=== PATIENT | male | born 1960 | race Caucasian/White ===

== ENCOUNTER 2018-02-21 20:42 | Emergency (ER) | payer OTHER ==
[2018-02-21 22:44] LABS: ADD MAN DIFF? NO
[2018-02-21 22:45] LABS: WHITE BLOOD COUNT 6.7 10^3/ul (4.8-10.8)
[2018-02-21 22:45] LABS: BASOPHIL # 0.1 10^3/ul (0.0-0.1); BASOPHILS % 0.9 % (0.0-2.0); EOSINOPHILS # 0.3 10^3/ul (0.0-0.5); HEMATOCRIT 45.1 % (42.0-52.0); HEMOGLOBIN 15.2 g/dl (14.0-18.0); LYMPHOCYTES # 2.6 10^3/ul (0.8-2.9); LYMPHOCYTES % 38.9 % (15.0-51.0); MEAN CORPUSCULAR HEMOGLOBIN 31.3 pg (29.0-33.0); MEAN CORPUSCULAR HGB CONC 33.7 g/dl (32.0-37.0); MEAN CORPUSCULAR VOLUME 92.8 fl (82.0-101.0); MEAN PLATELET VOLUME 9.5 fl (7.4-10.4); MONOCYTE # 0.5 10^3/ul (0.3-0.9); MONOCYTES % 7.9 % (0.0-11.0); NEUTROPHIL # 3.2 10^3/ul (1.6-7.5); NEUTROPHILS % 46.9 % (39.0-77.0); PLATELET COUNT 158 10^3/UL (140-415); RED BLOOD COUNT 4.86 10^6/ul (4.70-6.10); RED CELL DISTRIBUTION WIDTH 12.4 % (11.5-14.5)
[2018-02-21] MEDS: HYDROmorphONE 0.5 MG/0.5 ML SYG IV (22:56)
[2018-02-21] MEDS: ONDANSETRON 4 MG INJ IV (22:56)
[2018-02-21 23:05] LABS: INR 1.01; PROTIME 13.4 Sec (11.9-14.9)
[2018-02-21 23:09] LABS: ALANINE AMINOTRANSFERASE 112 IU/L (13-69); ALBUMIN 3.7 g/dl (3.3-4.9); ALBUMIN/GLOBULIN RATIO 1.27; ALKALINE PHOSPHATASE 59 IU/L (42-121); ANION GAP 12 (8-16); ASPARTATE AMINO TRANSFERASE 59 IU/L (15-46); BLOOD UREA NITROGEN 16 mg/dl (7-20); CALCIUM 9.2 mg/dl (8.4-10.2); CARBON DIOXIDE 24 mmol/L (21-31); CHLORIDE 108 mmol/L (97-110); CREATININE 1.26 mg/dl (0.61-1.24); GLUCOSE 191 mg/dl (70-220); LIPASE 186 U/L (23-300); POTASSIUM 5.3 mmol/L (3.5-5.1); SODIUM 139 mmol/L (135-144); TOTAL PROTEIN 6.6 g/dl (6.1-8.1)
[2018-02-22 01:01] LABS: ADD UMIC YES; UR ASCORBIC ACID NEGATIVE (NEGATIVE); UR BILIRUBIN (Dip) NEGATIVE (NEGATIVE); UR BLOOD (Dip) NEGATIVE (NEGATIVE); UR CLARITY CLEAR (CLEAR); UR COLOR STRAW (YELLOW); UR GLUCOSE (Dip) NEGATIVE (NEGATIVE); UR KETONES (Dip) NEGATIVE (NEGATIVE); UR LEUKOCYTE ESTERASE (Dip) NEGATIVE Leu/ul (NEGATIVE); UR NITRITE (Dip) NEGATIVE (NEGATIVE); UR RBC 0 /HPF (0-5); UR SPECIFIC GRAVITY (Dip) 1.008 (1.003-1.030); UR TOTAL PROTEIN (Dip) 2+ mg/dl (NEGATIVE); UR UROBILINOGEN (Dip) NEGATIVE (NEGATIVE); UR WBC 1 /HPF (0-5)
[2018-02-22] MEDS: morphine 10 MG INJ IV (01:10)
== END 2018-02-22 01:51 | disposition home or self-care (01) ==
LOC: E/R 02-22 01:51
DX: R10.84 Generalized abdominal pain (principal); R14.0 Abdominal distension (gaseous); R11.0 Nausea; B18.2 Chronic viral hepatitis C; I12.9 Hypertensive chronic kidney disease with stage 1 through stage 4 chronic kidney disease, or unspecified chronic kidney disease; N18.9 Chronic kidney disease, unspecified; E87.5 Hyperkalemia; R74.0 Nonspecific elevation of levels of transaminase and lactic acid dehydrogenase [LDH]; K74.60 Unspecified cirrhosis of liver; E11.22 Type 2 diabetes mellitus with diabetic chronic kidney disease; Z79.84 Long term (current) use of oral hypoglycemic drugs
CPT/HCPCS: 36415; 74176; 80053; 81001; 83690; 85025; 85610; 96374; 96375; 99285-25

== ENCOUNTER 2018-04-12 21:43 | Emergency (ER) | payer OTHER ==
[2018-04-12] MEDS: morphine 4 MG/ML VIAL IV (22:30)
[2018-04-12] MEDS: ONDANSETRON 4 MG INJ IV (22:30)
[2018-04-12 22:37] LABS: ADD MAN DIFF? NO
[2018-04-12] MEDS: HYDROmorphONE 0.5 MG/0.5 ML SYG IV (23:00)
[2018-04-12 23:42] LABS: WHITE BLOOD COUNT 7.9 10^3/ul (4.8-10.8)
[2018-04-12 23:42] LABS: BASOPHILS % 0.5 % (0.0-2.0); EOSINOPHILS # 0.2 10^3/ul (0.0-0.5); EOSINOPHILS % 2.9 % (0.0-7.0); HEMATOCRIT 44.6 % (42.0-52.0); HEMOGLOBIN 15.2 g/dl (14.0-18.0); LYMPHOCYTES # 3.6 10^3/ul (0.8-2.9); LYMPHOCYTES % 45.2 % (15.0-51.0); MEAN CORPUSCULAR HEMOGLOBIN 30.6 pg (29.0-33.0); MEAN CORPUSCULAR HGB CONC 34.1 g/dl (32.0-37.0); MEAN CORPUSCULAR VOLUME 89.9 fl (82.0-101.0); MEAN PLATELET VOLUME 10.1 fl (7.4-10.4); MONOCYTE # 0.5 10^3/ul (0.3-0.9); NEUTROPHIL # 3.5 10^3/ul (1.6-7.5); NEUTROPHILS % 45.1 % (39.0-77.0); PLATELET COUNT 157 10^3/UL (140-415); RED BLOOD COUNT 4.96 10^6/ul (4.70-6.10); RED CELL DISTRIBUTION WIDTH 12.7 % (11.5-14.5)
[2018-04-12 23:55] LABS: LACTIC ACID 0.8 mmol/L (0.5-2.0)
[2018-04-13 00:02] LABS: ALANINE AMINOTRANSFERASE 167 IU/L (13-69); ALBUMIN 3.6 g/dl (3.3-4.9); ALBUMIN/GLOBULIN RATIO 1.09; ALKALINE PHOSPHATASE 77 IU/L (42-121); ANION GAP 13 (8-16); ASPARTATE AMINO TRANSFERASE 75 IU/L (15-46); BILIRUBIN,INDIRECT 0.2 mg/dl (0-1.1); BILIRUBIN,TOTAL 0.2 mg/dl (0.2-1.3); BLOOD UREA NITROGEN 21 mg/dl (7-20); CALCIUM 8.9 mg/dl (8.4-10.2); CARBON DIOXIDE 21 mmol/L (21-31); CHLORIDE 103 mmol/L (97-110); CREATININE 1.06 mg/dl (0.61-1.24); GLUCOSE 126 mg/dl (70-220); LIPASE 185 U/L (23-300); POTASSIUM 4.7 mmol/L (3.5-5.1); SODIUM 132 mmol/L (135-144); TOTAL PROTEIN 6.9 g/dl (6.1-8.1)
[2018-04-13 00:10] LABS: INR 1.01; PROTIME 13.4 Sec (11.9-14.9)
[2018-04-13] MEDS: HYDROmorphONE 2 MG/ML SYG IV (01:07)
== END 2018-04-13 02:27 | disposition home or self-care (01) ==
LOC: E/R 04-13 02:27
DX: R10.9 Unspecified abdominal pain (principal); R11.2 Nausea with vomiting, unspecified; I10 Essential (primary) hypertension; E11.9 Type 2 diabetes mellitus without complications; Z79.84 Long term (current) use of oral hypoglycemic drugs
CPT/HCPCS: 74176; 80053; 83605; 83690; 85025; 85610; 85730; 87040; 96374; 96375; 96376; 99285-25

== ENCOUNTER 2018-06-21 18:39 | Inpatient (IN) | payer OTHER ==
[2018-06-21] MEDS ORDERED: morphine 4 MG/ML VIAL IV (21:33)
[2018-06-21] MEDS: SOD CHLORIDE 0.9% 500 ML IV (21:57)
[2018-06-21] MEDS: ONDANSETRON 4 MG INJ IV (21:57)
[2018-06-21] MEDS: HYDROmorphONE 0.5 MG/0.5 ML SYG IV (21:57)
[2018-06-21 22:05] LABS: ADD MAN DIFF? NO
[2018-06-21 22:09] LABS: WHITE BLOOD COUNT 6.8 10^3/ul (4.8-10.8)
[2018-06-21 22:09] LABS: BASOPHIL # 0.1 10^3/ul (0.0-0.1); EOSINOPHILS # 0.3 10^3/ul (0.0-0.5); EOSINOPHILS % 3.7 % (0.0-7.0); HEMATOCRIT 48.2 % (42.0-52.0); HEMOGLOBIN 16.2 g/dl (14.0-18.0); LYMPHOCYTES # 3.2 10^3/ul (0.8-2.9); LYMPHOCYTES % 46.5 % (15.0-51.0); MEAN CORPUSCULAR HEMOGLOBIN 31.2 pg (29.0-33.0); MEAN CORPUSCULAR HGB CONC 33.6 g/dl (32.0-37.0); MEAN CORPUSCULAR VOLUME 92.9 fl (82.0-101.0); MEAN PLATELET VOLUME 10.2 fl (7.4-10.4); MONOCYTE # 0.4 10^3/ul (0.3-0.9); MONOCYTES % 5.6 % (0.0-11.0); NEUTROPHIL # 2.9 10^3/ul (1.6-7.5); NEUTROPHILS % 43.1 % (39.0-77.0); PLATELET COUNT 148 10^3/UL (140-415); RED BLOOD COUNT 5.19 10^6/ul (4.70-6.10); RED CELL DISTRIBUTION WIDTH 12.3 % (11.5-14.5)
[2018-06-21 22:27] LABS: PROTIME 13.3 Sec (11.9-14.9)
[2018-06-21 22:28] LABS: PARTIAL THROMBOPLASTIN TIME 32.3 Sec (23.0-35.0)
[2018-06-21 22:39] LABS: ALANINE AMINOTRANSFERASE 82 IU/L (13-69); ALBUMIN 3.9 g/dl (3.3-4.9); ALKALINE PHOSPHATASE 85 IU/L (42-121); ANION GAP 11 (5-13); ASPARTATE AMINO TRANSFERASE 41 IU/L (15-46); BLOOD UREA NITROGEN 24 mg/dl (7-20); CALCIUM 9.1 mg/dl (8.4-10.2); CARBON DIOXIDE 18 mmol/L (21-31); CHLORIDE 108 mmol/L (97-110); CREATININE 1.36 mg/dl (0.61-1.24); Estimated GFR 54 mL/min (>60); GLUCOSE 122 mg/dl (70-220); LIPASE 249 U/L (23-300); POTASSIUM 5.1 mmol/L (3.5-5.1); SODIUM 137 mmol/L (135-144); TOTAL PROTEIN 6.9 g/dl (6.1-8.1)
[2018-06-21] MEDS: HYDROmorphONE 1 MG/ML SYG IV (23:06)
[2018-06-21 23:22] LABS: ADD UMIC YES; UR ASCORBIC ACID NEGATIVE (NEGATIVE); UR BILIRUBIN (Dip) NEGATIVE (NEGATIVE); UR BLOOD (Dip) NEGATIVE (NEGATIVE); UR CLARITY CLEAR (CLEAR); UR COLOR STRAW (YELLOW); UR GLUCOSE (Dip) NEGATIVE (NEGATIVE); UR KETONES (Dip) NEGATIVE (NEGATIVE); UR LEUKOCYTE ESTERASE (Dip) NEGATIVE Leu/ul (NEGATIVE); UR NITRITE (Dip) NEGATIVE (NEGATIVE); UR RBC 0 /HPF (0-5); UR TOTAL PROTEIN (Dip) 2+ mg/dl (NEGATIVE); UR UROBILINOGEN (Dip) NEGATIVE (NEGATIVE); UR WBC 0 /HPF (0-5)
[2018-06-22] MEDS: METOCLOPRAMIDE 10 MG INJ IV (00:26)
[2018-06-22] MEDS ORDERED: NACL 0.9% 3 ML SYG IV (01:00)
[2018-06-22] MEDS ORDERED: ALBUTEROL/IPRATROPIUM (NEB) 3 ML AMP HHN (01:00)
[2018-06-22] MEDS ORDERED: ACETAMINOPHEN 325 MG TAB PO (01:00)
[2018-06-22] MEDS ORDERED: ONDANSETRON 4 MG INJ IV (01:00)
[2018-06-22] MEDS ORDERED: HYDROCODONE/APAP (5/325) TAB PO (01:00)
[2018-06-22] MEDS ORDERED: HYDROCODONE/APAP (10/325) TAB PO (01:00)
[2018-06-22] MEDS ORDERED: GLUCOSE GEL 15 GRAM TUBE BUCCAL (01:30)
[2018-06-22] MEDS ORDERED: GLUCAGON 1 MG INJ IM (01:30)
[2018-06-22] MEDS ORDERED: GLUCOSE GEL 15 GRAM TUBE PO ×2 (01:30)
[2018-06-22] MEDS ORDERED: DEXTROSE 50% 50 ML SYRINGE IV ×2 (01:30)
[2018-06-22] MEDS: HYDROCODONE/APAP (10/325) TAB PO ×5 (01:50→18:56)
[2018-06-22] MEDS ORDERED: morphine 4 MG/ML VIAL IV (03:20)
[2018-06-22] MEDS: morphine 2 MG INJ IV ×2 (03:51→08:39)
[2018-06-22 05:48] LABS: ADD MAN DIFF? NO
[2018-06-22 05:59] LABS: BASOPHIL # 0.1 10^3/ul (0.0-0.1); BASOPHILS % 1.2 % (0.0-2.0); EOSINOPHILS # 0.3 10^3/ul (0.0-0.5); EOSINOPHILS % 3.3 % (0.0-7.0); HEMATOCRIT 50.1 % (42.0-52.0); HEMOGLOBIN 16.7 g/dl (14.0-18.0); LYMPHOCYTES # 3.4 10^3/ul (0.8-2.9); MEAN CORPUSCULAR HEMOGLOBIN 30.9 pg (29.0-33.0); MEAN CORPUSCULAR HGB CONC 33.3 g/dl (32.0-37.0); MEAN CORPUSCULAR VOLUME 92.6 fl (82.0-101.0); MEAN PLATELET VOLUME 10.9 fl (7.4-10.4); MONOCYTE # 0.5 10^3/ul (0.3-0.9); NEUTROPHIL # 3.2 10^3/ul (1.6-7.5); NEUTROPHILS % 43.4 % (39.0-77.0); PLATELET COUNT 135 10^3/UL (140-415); POSITIVE DIFF @See below; RED BLOOD COUNT 5.41 10^6/ul (4.70-6.10); RED CELL DISTRIBUTION WIDTH 12.3 % (11.5-14.5)
[2018-06-22 05:59] LABS: WHITE BLOOD COUNT 7.5 10^3/ul (4.8-10.8)
[2018-06-22 06:25] LABS: ALANINE AMINOTRANSFERASE 76 IU/L (13-69); ALBUMIN 3.8 g/dl (3.3-4.9); ALBUMIN/GLOBULIN RATIO 1.11; ALKALINE PHOSPHATASE 75 IU/L (42-121); ANION GAP 7 (5-13); ASPARTATE AMINO TRANSFERASE 42 IU/L (15-46); BILIRUBIN,INDIRECT 0.3 mg/dl (0-1.1); BILIRUBIN,TOTAL 0.3 mg/dl (0.2-1.3); BLOOD UREA NITROGEN 20 mg/dl (7-20); CARBON DIOXIDE 20 mmol/L (21-31); CHLORIDE 110 mmol/L (97-110); CREATININE 1.09 mg/dl (0.61-1.24); Estimated GFR > 60 mL/min (>60); GLUCOSE 139 mg/dl (70-220); POTASSIUM 5.4 mmol/L (3.5-5.1); SODIUM 137 mmol/L (135-144); TOTAL PROTEIN 7.2 g/dl (6.1-8.1)
[2018-06-22 07:23] LABS: HEMOGLOBIN A1C 8.4 % (0-5.9)
[2018-06-22] MEDS: DOCUSATE SODIUM 250 MG CAP PO (08:39)
[2018-06-22] MEDS: HYDROmorphONE 1 MG/ML SYG IV ×3 (11:48→20:20)
[2018-06-22] MEDS: ARIPIPRAZOLE 10 MG TAB PO (11:49)
[2018-06-22] MEDS ORDERED: HYDROCHLOROTHIAZIDE 12.5 MG CAP PO (12:30)
[2018-06-22] MEDS ORDERED: LOSARTAN 50 MG TAB PO (12:30)
[2018-06-22 12:52] LABS: CARCINOEMBRYONIC ANTIGEN 4.5 ng/ml (0.0-5.0)
[2018-06-22] MEDS: PANTOPRAZOLE 40 MG INJ IV (14:04)
[2018-06-22] MEDS: metroNIDAZOLE 500 MG TAB PO ×2 (14:05→21:29)
[2018-06-22] MEDS: AMLODIPINE 2.5 MG TAB PO (14:05)
[2018-06-22] MEDS: HYDROCHLOROTHIAZIDE 12.5 MG CAP PO (14:05)
[2018-06-22] MEDS: NA POLYST SULFON 15 GM/60 ML BTL PO (14:06)
[2018-06-22] MEDS: CIPROFLOXACIN 500 MG TAB PO ×2 (14:09→18:56)
[2018-06-22] MEDS: INSULIN ASPART [NOVOLOG] 3 ML PEN SC ×2 (18:05→20:10)
[2018-06-22] MEDS: INSULIN GLARGINE [LANTus] (100 UNITS/ML) SYG SC (20:11)
[2018-06-22] MEDS: GABAPENTIN 300 MG CAP PO (20:12)
[2018-06-22] MEDS: ZOLPIDEM 5 MG TAB PO (21:29)
[2018-06-22] MEDS: NORTRIPTYLINE 10 MG CAP PO (21:29)
[2018-06-23] MEDS: ACCU-CHEK XX (02:00)
[2018-06-23] MEDS: HYDROmorphONE 1 MG/ML SYG IV ×5 (02:47→20:28)
[2018-06-23 06:26] LABS: ADD MAN DIFF? NO
[2018-06-23 06:31] LABS: BASOPHIL # 0.1 10^3/ul (0.0-0.1); BASOPHILS % 0.9 % (0.0-2.0); EOSINOPHILS # 0.2 10^3/ul (0.0-0.5); EOSINOPHILS % 3.6 % (0.0-7.0); HEMATOCRIT 51.5 % (42.0-52.0); HEMOGLOBIN 17.2 g/dl (14.0-18.0); LYMPHOCYTES % 46.7 % (15.0-51.0); MEAN CORPUSCULAR HEMOGLOBIN 30.6 pg (29.0-33.0); MEAN CORPUSCULAR HGB CONC 33.4 g/dl (32.0-37.0); MEAN CORPUSCULAR VOLUME 91.6 fl (82.0-101.0); MEAN PLATELET VOLUME 9.8 fl (7.4-10.4); MONOCYTE # 0.5 10^3/ul (0.3-0.9); MONOCYTES % 7.8 % (0.0-11.0); NEUTROPHIL # 2.6 10^3/ul (1.6-7.5); NEUTROPHILS % 40.8 % (39.0-77.0); PLATELET COUNT 157 10^3/UL (140-415); RED BLOOD COUNT 5.62 10^6/ul (4.70-6.10); RED CELL DISTRIBUTION WIDTH 12.2 % (11.5-14.5)
[2018-06-23 06:31] LABS: WHITE BLOOD COUNT 6.5 10^3/ul (4.8-10.8)
[2018-06-23 06:48] LABS: ANION GAP 11 (5-13); BLOOD UREA NITROGEN 19 mg/dl (7-20); CALCIUM 9.4 mg/dl (8.4-10.2); CARBON DIOXIDE 22 mmol/L (21-31); CHLORIDE 104 mmol/L (97-110); CREATININE 1.06 mg/dl (0.61-1.24); Estimated GFR > 60 mL/min (>60); GLUCOSE 129 mg/dl (70-220); MAGNESIUM 1.4 mg/dl (1.7-2.5); PHOSPHORUS 3.7 mg/dl (2.5-4.9); POTASSIUM 4.5 mmol/L (3.5-5.1); SODIUM 137 mmol/L (135-144)
[2018-06-23] MEDS: CIPROFLOXACIN 500 MG TAB PO ×2 (06:58→17:46)
[2018-06-23] MEDS: metroNIDAZOLE 500 MG TAB PO ×3 (06:58→22:19)
[2018-06-23] MEDS: PANTOPRAZOLE 40 MG INJ IV (06:58)
[2018-06-23] MEDS: INSULIN ASPART [NOVOLOG] 3 ML PEN SC ×4 (08:00→21:00)
[2018-06-23] MEDS: ARIPIPRAZOLE 10 MG TAB PO (09:05)
[2018-06-23] MEDS: DOCUSATE SODIUM 250 MG CAP PO (09:05)
[2018-06-23] MEDS: HYDROCHLOROTHIAZIDE 12.5 MG CAP PO (09:05)
[2018-06-23] MEDS: AMLODIPINE 2.5 MG TAB PO (09:06)
[2018-06-23] MEDS: HYDROCODONE/APAP (10/325) TAB PO ×3 (10:29→18:43)
[2018-06-23] MEDS: MAGNESIUM SULFATE 2 GM/50 ML 50 ML IVPB (13:29)
[2018-06-23] MEDS: ENOXAPARIN 40 MG/0.4 ML SYG SC (13:34)
[2018-06-23] MEDS: INSULIN GLARGINE [LANTus] (100 UNITS/ML) SYG SC (20:23)
[2018-06-23] MEDS: NORTRIPTYLINE 10 MG CAP PO (20:25)
[2018-06-23] MEDS: GABAPENTIN 300 MG CAP PO (20:25)
[2018-06-23] MEDS: AMLODIPINE 5 MG TAB PO (20:28)
[2018-06-23] MEDS: LORAZEPAM 1 MG TAB PO (22:19)
[2018-06-24] MEDS: HYDROmorphONE 1 MG/ML SYG IV ×4 (01:13→14:31)
[2018-06-24] MEDS: ACCU-CHEK XX (02:00)
[2018-06-24] MEDS ORDERED: PANTOPRAZOLE (EC) 40 MG TAB PO (04:57)
[2018-06-24] MEDS: CIPROFLOXACIN 500 MG TAB PO ×2 (05:15→17:39)
[2018-06-24] MEDS: metroNIDAZOLE 500 MG TAB PO ×2 (05:15→14:26)
[2018-06-24] MEDS: PANTOPRAZOLE (EC) 40 MG TAB PO (05:15)
[2018-06-24 06:26] LABS: ADD MAN DIFF? NO
[2018-06-24 06:31] LABS: BASOPHIL # 0.1 10^3/ul (0.0-0.1); BASOPHILS % 0.9 % (0.0-2.0); EOSINOPHILS # 0.2 10^3/ul (0.0-0.5); EOSINOPHILS % 3.7 % (0.0-7.0); HEMATOCRIT 47.3 % (42.0-52.0); HEMOGLOBIN 16.1 g/dl (14.0-18.0); LYMPHOCYTES # 2.3 10^3/ul (0.8-2.9); LYMPHOCYTES % 41.4 % (15.0-51.0); MEAN CORPUSCULAR HEMOGLOBIN 30.7 pg (29.0-33.0); MEAN CORPUSCULAR VOLUME 90.3 fl (82.0-101.0); MEAN PLATELET VOLUME 10.4 fl (7.4-10.4); MONOCYTE # 0.5 10^3/ul (0.3-0.9); NEUTROPHIL # 2.5 10^3/ul (1.6-7.5); PLATELET COUNT 155 10^3/UL (140-415); RED BLOOD COUNT 5.24 10^6/ul (4.70-6.10); RED CELL DISTRIBUTION WIDTH 12.2 % (11.5-14.5)
[2018-06-24 06:31] LABS: WHITE BLOOD COUNT 5.5 10^3/ul (4.8-10.8)
[2018-06-24 07:22] LABS: ALANINE AMINOTRANSFERASE 84 IU/L (13-69); ALBUMIN 3.7 g/dl (3.3-4.9); ALBUMIN/GLOBULIN RATIO 1.27; ALKALINE PHOSPHATASE 74 IU/L (42-121); ANION GAP 9 (5-13); ASPARTATE AMINO TRANSFERASE 42 IU/L (15-46); BILIRUBIN,INDIRECT 0.5 mg/dl (0-1.1); BILIRUBIN,TOTAL 0.5 mg/dl (0.2-1.3); BLOOD UREA NITROGEN 26 mg/dl (7-20); CALCIUM 9.4 mg/dl (8.4-10.2); CARBON DIOXIDE 22 mmol/L (21-31); CHLORIDE 104 mmol/L (97-110); CREATININE 1.01 mg/dl (0.61-1.24); Estimated GFR > 60 mL/min (>60); GLUCOSE 225 mg/dl (70-220); MAGNESIUM 1.5 mg/dl (1.7-2.5); POTASSIUM 4.5 mmol/L (3.5-5.1); SODIUM 135 mmol/L (135-144); TOTAL PROTEIN 6.6 g/dl (6.1-8.1)
[2018-06-24] MEDS: IOHEXOL 300MG/ML 150 ML BTL (08:30)
[2018-06-24] MEDS: SOD CHLORIDE 0.9% 100 ML (08:30)
[2018-06-24] MEDS: IOHEXOL 300MG/ML 30 ML BTL (08:32)
[2018-06-24] MEDS: INSULIN ASPART [NOVOLOG] 3 ML PEN SC ×3 (08:39→17:38)
[2018-06-24] MEDS: LOSARTAN 50 MG TAB PO (08:42)
[2018-06-24] MEDS: DOCUSATE SODIUM 250 MG CAP PO (08:42)
[2018-06-24] MEDS: HYDROCHLOROTHIAZIDE 12.5 MG CAP PO (08:42)
[2018-06-24] MEDS: AMLODIPINE 5 MG TAB PO (08:43)
[2018-06-24] MEDS: ARIPIPRAZOLE 10 MG TAB PO (08:43)
[2018-06-24] MEDS: NICOTINE (21 MG/24 HR) PATCH TRANSDERM (08:43)
[2018-06-24] MEDS: ENOXAPARIN 40 MG/0.4 ML SYG SC (08:44)
[2018-06-24] MEDS: HYDROCODONE/APAP (10/325) TAB PO (11:28)
[2018-06-24] MEDS: MAGNESIUM SULFATE 4 GM/100 ML 100 ML IVPB (11:59)
[2018-06-24] MEDS: HYDROCODONE/APAP (5/325) TAB PO (17:43)
== END 2018-06-24 19:48 | disposition home or self-care (01) | DRG 91 ==
LOC: E/R 18:39 → PP2 06-22 00:16
DX: G89.21 Chronic pain due to trauma (principal); G89.28 Other chronic postprocedural pain; S72.011A Unspecified intracapsular fracture of right femur, initial encounter for closed fracture; N17.9 Acute kidney failure, unspecified; K74.60 Unspecified cirrhosis of liver; B19.20 Unspecified viral hepatitis C without hepatic coma; W19.XXXA Unspecified fall, initial encounter; E11.9 Type 2 diabetes mellitus without complications; I10 Essential (primary) hypertension; E87.5 Hyperkalemia; F17.200 Nicotine dependence, unspecified, uncomplicated; E83.42 Hypomagnesemia; M25.551 Pain in right hip
CPT/HCPCS: 71045; 72148; 73510; 73721; 74176; 74177; 80048; 80053; 81001; 82378; 82962; 83036; 83690; 83735; 84100; 85025; 85610; 85730; 93005; 93306